=== PATIENT | male | born 1980 | race Caucasian/White ===

== ENCOUNTER 2025-01-22 15:02 | Emergency (ER) | payer OTHER ==
[~2025-01-22] VITALS: Ht 188 cm; Wt 81.6 kg
[2025-01-22 15:25] VITALS: TEMP 98.1
[2025-01-22] MEDS ORDERED: TDAP [DIPH/PERTUSSIS/TET] 0.5 ML VIAL IM ONE (16:01)
[2025-01-22] MEDS: TDAP [DIPH/PERTUSSIS/TET] 0.5 ML VIAL IM ONE (16:06)
[2025-01-22 16:49] VITALS: BP 127/84; O2SAT 98
== END 2025-01-22 16:50 | disposition home or self-care (01) ==
LOC: ER 15:02
DX: S61.011A Laceration without foreign body of right thumb without damage to nail, initial encounter (principal); Z88.0 Allergy status to penicillin; W45.8XXA Other foreign body or object entering through skin, initial encounter; Y93.89 Activity, other specified; Y92.89 Other specified places as the place of occurrence of the external cause; Y99.8 Other external cause status
CPT/HCPCS: 99283; 29130; 90471; 90715; 73140; A6403